=== PATIENT | female | born 1980 | race American Indian/Alaskan Native ===

== ENCOUNTER 2017-03-22 11:17 | Outpatient (CLI) | payer OTHER ==
--- NOTE | 2017-03-22 12:42 | XRay Report ---
BILATERAL HIPS WITH PELVIS, 3 VIEWS: History: Pain. Findings: Bone mineralization is within normal limits. There is no evidence for fracture, dislocation or pelvic diastasis. No advanced joint pathology is detected. The soft tissues are unremarkable. Impression: Unremarkable exam.
--- NOTE | 2017-03-22 12:44 | XRay Report ---
LEFT KNEE, 2 VIEWS History: Pain, compartment syndrome. Findings: No comparison. Chronic, remodeling fracture of the tibial plateau and distal femoral shaft are suspected, please correlate with history. There are mild posttraumatic degenerative changes at the left knee. There is lateral subluxation of the tibial plateau with respect to the distal femur. Small joint effusion. Impression: Chronic findings as described. No acute injury is appreciated.
== END 2017-03-22 11:18 | disposition home or self-care (01) ==
LOC: XRAY 11:17
PROVIDERS: ATTEND Internal Medicine
DX: M17.32 Unilateral post-traumatic osteoarthritis, left knee (principal); M25.551 Pain in right hip; M25.552 Pain in left hip; J45.909 Unspecified asthma, uncomplicated; F41.9 Anxiety disorder, unspecified; D64.9 Anemia, unspecified; F31.9 Bipolar disorder, unspecified; T79.A0XA Compartment syndrome, unspecified, initial encounter; X58.XXXA Exposure to other specified factors, initial encounter
CPT/HCPCS: 73521

== ENCOUNTER 2017-10-15 19:26 | Inpatient (IN) | payer OTHER ==
[~2017-10-15 19:26] MED LIST: PITOCin/NS 20 UNIT/1000ML DRIP 20 UNITS/1,000 ML BAG IV SCH
[2017-10-15] MEDS ORDERED: PITOCin/NS 20 UNIT/1000ML DRIP 20,000 MILLIUNITS/1,000 ML BAG IV ONE ×2 (19:30→21:00)
[2017-10-15] MEDS ORDERED: D10W 250 ML IV ONE (19:32)
[2017-10-15] MEDS ORDERED: TORADOL IV ONE (20:44)
[2017-10-15] MEDS ORDERED: DULCOLAX PR PRN (21:44)
[2017-10-15] MEDS ORDERED: ZOFRAN IV PRN (21:44)
[2017-10-15] MEDS ORDERED: PHENERGAN PR PRN (21:44)
[2017-10-15] MEDS ORDERED: LANSINOH TP PRN (21:44)
[2017-10-15] MEDS ORDERED: TYLENOL PO PRN (21:44)
[2017-10-15] MEDS ORDERED: BENADRYL PO PRN (21:44)
[2017-10-15] MEDS ORDERED: MILK OF MAGNESIA PO PRN (21:44)
[2017-10-15] MEDS ORDERED: PHENERGAN PO PRN (21:44)
--- NOTE | 2017-10-15 21:47 | History and Physical Report ---
History of Present Illness Date of examination: 10/15/17 Date of admission: 10/15/17 19:26 History of present illness: 37y/o # 38+1 weeks presents via EMS after having a home delivery of a liveborn female . EMS revived the infant and noted the to have apgars of 1/4/6. The patient had spontaneous delivery of the placenta. Patient had been receiving care @ [facility]. No records are available for review. The patient states her GBS status is negative. Past History Past Medical History: no pertinent history Past Surgical History: other (repair of left upper and lower extremity fracture) Social history: - Obstetrical History Expected Date of Delivery: 10/28/17 Actual Gestation: 38 Week(s) 2 Day(s) : 8 Para: 6 Hx # Term Pregnancies: 6 Number of Pregnancies: 0 Spontaneous Abortions: 1 Induced : 0 Number of Living Children: 6 Medications and Allergies Allergies Allergy/AdvReac Type Severity Reaction Status Date / Time No Known Allergies Allergy Unverified 03/22/17 11:17 Active Meds: Active Medications Acetaminophen (Tylenol) 650 mg PO Q4H PRN PRN Reason: Pain MILD(1-3)/Fever >100.5/BUENO Acetaminophen/Hydrocodone Bitart ([place] 5/325) 2 each PO Q6H PRN PRN Reason: Pain, Moderate (4-6) Bisacodyl (Dulcolax) 10 mg MI BID PRN PRN Reason: Constipation Diphenhydramine HCl (Benadryl) 25 mg PO Q6H PRN PRN Reason: Itching Ibuprofen (Motrin) 600 mg PO Q6H ALESSANDRO Magnesium Hydroxide (Milk Of Magnesia) 30 ml PO HS PRN PRN Reason: Constipation Multi-Ingredient Ointment (Lansinoh) 1 applic TP PRN PRN PRN Reason: Sore Nipples Ondansetron HCl (Zofran) 4 mg IV Q8H PRN PRN Reason: Nausea And Vomiting Promethazine HCl (Phenergan) 25 mg MI Q6H PRN PRN Reason: Nausea And Vomiting Promethazine HCl (Phenergan) 25 mg PO Q6H PRN PRN Reason: Nausea And Vomiting Sodium Chloride (Sodium Chloride Flush Syringe 10 Ml) 10 ml IV PRN NR Witch Lisa/Glycerin (Tucks Pad) 1 each TP PRN PRN PRN Reason: Hemorrhoid/cleansing/soothing Review of Systems All systems: negative - Vital Signs Vital signs: Vital Signs Pulse BP 83 117/58 10/15/17 19:53 10/15/17 19:53 Temp Pulse Resp BP Pulse Ox 74 113/59 10/15/17 21:40 10/15/17 21:40 - Physical Exam Breasts: Positive: deferred Cardiovascular: Regular rate Lungs: Positive: Clear to auscultation Abdomen: Positive: normal appearance Results All other labs normal. Assessment and Plan - Patient Problems (1) Precipitous delivery Current Visit: Yes Status: Acute Plan to address problem: precipitous delivery routine care
--- NOTE | 2017-10-15 21:48 | Procedure Note ---
OB Delivery Note - Delivery Date of Delivery: 10/15/17 Surgeon: AKIRA WIGGINS - Vaginal Delivery presentation: vertex Intrapartum events: precipitous labor- <3hr Route of delivery: Delivery placenta: spontaneous Delivery cord: 3 umbilical vessels Episiotomy: none Delivery laceration: 1st degree Anesthesia: none Delivery comments: The patient a delivery of liveborn female at home. The placenta delivered spontaneously. The patient and were brought in by EMS. The patient sustained a first degree midline laceration and a superficial right periurethral laceration left unrepaired. weight 2.31Kg - A at 1 minute: 1 at 5 minutes: 4 Gender: Female (apgars of 1,4,6. Weight 2.31kg)
[2017-10-15] MEDS ORDERED: SODIUM CHLORIDE FLUSH SYRINGE 10 ML IV NR (22:00)
[2017-10-15 22:33] LABS: Rubella IgG Antibody Immune (Immune)
[2017-10-15 22:36] LABS: Hepatitis C Virus Antibody Non-Reactive (NonReactive)
[2017-10-15] MEDS: MOTRIN PO SCH (23:37)
[2017-10-15] MEDS: TUCKS PAD TP PRN (23:37)
[2017-10-15] MEDS: NORCO 5/325 PO PRN (23:38)
[2017-10-16] MEDS: MOTRIN PO SCH ×3 (05:30→20:11)
[2017-10-16] MEDS: NORCO 5/325 PO PRN ×4 (05:30→20:10)
--- NOTE | 2017-10-16 07:51 | Progress Note ---
Assessment and Plan - Patient Problems (1) Precipitous delivery Current Visit: Yes Status: Acute Plan to address problem: routine care Subjective - Subjective Date of service: 10/16/17 Interval history: The patient notes discomfort in perineum with urination. The patient has small 1st degree midline laceration. Lochia is decreasing. The infant is currently in the NICU Patient reports: appetite normal, voiding normally [place]: in NICU Objective - Vital Signs Latest vital signs: Vital Signs Temp Pulse Resp BP BP 10/16/17 04:14 98.7 F 77 18 97/52 10/16/17 00:00 96.8 F L 20 10/15/17 23:37 98.5 F 74 18 112/59 10/15/17 22:24 71 101/54 10/15/17 22:09 69 108/58 10/15/17 21:54 74 111/58 10/15/17 21:40 74 113/59 10/15/17 21:25 77 126/77 10/15/17 21:10 80 119/61 10/15/17 20:55 68 129/67 10/15/17 20:40 82 129/67 10/15/17 20:25 89 137/75 10/15/17 20:18 162 H 137/100 10/15/17 19:53 83 117/58 10/15/17 19:32 98.6 F 20 Intake and Output 10/15/17 10/16/17 10/16/17 22:59 06:59 14:59 Output Total 500 Balance -500 Output: Urine 500 Void 500 Other: Total, Output Amount 500 Weight 122.47 kg - Exam Cardiovascular: Present: Regular rate Lungs: Present: Clear to auscultation Abdomen: Present: normal appearance Incision: Present: other (small perineal laceration)
[2017-10-16 10:40] LABS: Hematocrit 29.9 % (30.3-42.9); Hemoglobin 9.4 gm/dl (10.1-14.3)
[2017-10-16] MEDS: TUCKS PAD TP PRN (22:06)
[2017-10-16 22:41] LABS: Amphetamine Screen,Urine PRESUMPTIVE NEGATIVE; Benzodiazepines Screen,Urine PRESUMPTIVE NEGATIVE; Cannabinoid Screen,Urine PRESUMPTIVE NEGATIVE; Cocaine Screen,Urine PRESUMPTIVE NEGATIVE; Opiate Screen,Urine PRESUMPTIVE NEGATIVE
[2017-10-16 22:58] LABS: Methadone Screen,Urine PRESUMPTIVE POSITIVE
[2017-10-17 01:55] VITALS: BP 105/78
[2017-10-17] MEDS: MOTRIN PO SCH ×2 (06:03→12:15)
[2017-10-17] MEDS: NORCO 5/325 PO PRN ×2 (06:03→12:15)
--- NOTE | 2017-10-17 08:36 | Progress Note ---
Assessment and Plan A/P PPD#2 s/p baby in NICU +methadone d/c home social service involved Subjective - Subjective Date of service: 10/17/17 Principal diagnosis: Patient reports: appetite normal, voiding normally, pain well controlled, flatus , ambulating normally [place]: in NICU Objective - Vital Signs Latest vital signs: Vital Signs Temp Pulse Resp BP BP Pulse Ox 10/17/17 06:03 18 10/17/17 00:30 98.6 F 78 16 105/78 10/16/17 20:11 18 10/16/17 20:10 18 10/16/17 17:09 97.8 F 79 18 99/58 100 10/16/17 14:30 20 10/16/17 09:51 20 Intake and Output 10/16/17 10/17/17 10/17/17 23:59 07:59 15:59 Intake Total 300 Balance 300 Intake: Intake, Free Water 300 - Exam Breasts: Present: normal Cardiovascular: Present: Regular rate, Normal S1 Lungs: Present: Clear to auscultation, Normal air movement Abdomen: Present: normal appearance, soft, normal bowel sounds. Absent: distention, tenderness, guarding Vulva: both: normal Uterus: Present: normal, firm Extremities: Present: normal Deep Tendon Reflex Grade: Normal +2 - Labs Labs: Abnormal lab results 10/16/17 Range/Units 10:08 Hgb 9.4 L (10.1-14.3) gm/dl Hct 29.9 L (30.3-42.9) %
--- NOTE | 2017-10-17 08:52 | Discharge Summary ---
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 HYDROcodone/APAP 5-325 [[place] 5/325] 1 each PO Q4HR PRN #30 tablet PRN Reason: Pain Ibuprofen [Motrin] 800 mg PO Q8HR PRN #60 tablet PRN Reason: Pain - Provider Discharge Summary Activity: routine, no sex for 6 weeks, no strenuous exercise Diet: routine Instructions: routine Additional instructions: [] Smoking cessation referral if applicable(refer to patient education folder for contact #) [] Refer to [facility]'s [facility] Booklet Call your doctor immediately for: * Fever > 100.5 * Heavy vaginal bleeding ( >1 pad per hour) * Severe persistent headache * Shortness of breath * Reddened, hot, painful area to leg or breast * Drainage or odor from incision. * Keep incision clean and dry at all times and follow doctor's instructions regarding bathing/showering - Follow up plan Follow up: AKIRA WIGGINS MD [Primary Care Provider] - 11/07/17
== END 2017-10-17 17:30 | disposition home or self-care (01) | DRG 775 ==
LOC: LD 19:26 → OB 23:24
PROVIDERS: ADMIT Obstetrics & Gynecology; ATTEND Obstetrics & Gynecology
DX: O70.0 First degree perineal laceration during delivery (principal); Z37.0 Single live birth; O62.3 Precipitate labor; Z3A.38 38 weeks gestation of pregnancy
CPT/HCPCS: 36415; 80307; 85014; 85018; 85660; 86592; 86706; 86762; 86803; 86850; 86900; 86901; 87806; 99211; G0463; J1885; J2590

== ENCOUNTER 2021-07-20 19:33 | Emergency (ER) | payer OTHER ==
[2021-07-20 20:15] VITALS: BP 115/72
--- NOTE | 2021-07-20 21:58 | Emergency Department Report ---
HPI - General Chief Complaint: Vaginal Bleeding - HPI HPI: 40-year-old female at approximately 20 weeks gestation based on her LMP presents complaining of cute onset of bleeding from her rectum or vagina. She states that she has not yet had an appointment with her INSURANCE EXAMINER at [facility] to confirm her but that appointment is in 2 days. She has not had an ultrasound for this . She does have a history of labor in the past. She says her blood type is O+. She states that today she was on the toilet having a bowel movement when she noticed that the toilet was filled with what looked like blood and blood clots. When she wiped there was no more blood and so she was unable to discern whether the bleeding came from her vagina or rectum. Since this incident which was approximately 5 hours ago, she has had lower abdominal cramping which she says feels like contractions. She denies any other associated symptoms or complaints. She has not tried taking anything for her symptoms. There are no known aggravating or alleviating factors. ED Past Medical Hx - Past Medical History Hx Hypertension: No Hx Congestive Heart Failure: No Hx Diabetes: No Hx Deep Vein Thrombosis: No Hx Renal Disease: No Hx Sickle Cell Disease: No Hx Seizures: No Hx Asthma: No Hx COPD: No Hx HIV: No - Social History Smoking Status: Never Smoker - Medications Home Medications: Home Medications Medication Instructions Recorded Confirmed Last Taken Type HYDROcodone/APAP 5-325 [[place] 1 each PO Q4HR PRN #30 tablet 10/16/17 Unknown Rx 5/325] Ibuprofen [Motrin] 800 mg PO Q8HR PRN #60 tablet 10/16/17 Unknown Rx Ferrous Sulfate 325 mg PO BID #60 tablet. 10/17/17 Unknown Rx ED Review of Systems ROS: Stated complaint: VAG BLEEDING-PREG Other details as noted in HPI Constitutional: denies: chills, fever Eyes: denies: eye pain, vision change ENT: denies: throat pain, congestion Respiratory: denies: cough, shortness of breath Cardiovascular: denies: chest pain, palpitations Gastrointestinal: abdominal pain. denies: nausea, vomiting Genitourinary: other (vaginal vs. rectal bleeding). denies: dysuria, frequency Musculoskeletal: denies: back pain, arthralgia Skin: denies: rash, lesions Neurological: denies: headache, weakness Psychiatric: denies: anxiety Hematological/Lymphatic: denies: easy bleeding Physical Exam - Physical Exam Vital Signs: Vital Signs 07/20/21 20:12 Temperature 98.0 F Pulse Rate 79 Respiratory 16 Rate Blood Pressure 115/72 [Left] O2 Sat by Pulse 98 Oximetry Physical Exam: GENERAL: Well developed and well nourished. No acute distress HEAD: Normocephalic. No obvious signs of trauma. ENT: Moist mucous membranes. EYES: Extraocular movements are intact. Pupils are equal round and reactive to light bilaterally NECK: Supple. Full ROM is intact. Trachea is midline. LUNGS: Nonlabored breathing. Equal chest rise bilaterally. Clear to auscultation bilaterally. CARDIOVASCULAR: Regular rate and rhythm. No murmurs or rubs. VASCULAR: Cap refill < 2 seconds ABDOMEN: Gravid abdomen which is soft. There is mild bilateral and mid suprapubic tenderness without significant guarding or rebound tenderness. RECTAL/: Deferred SKIN: Skin is warm and dry NEURO: Patient is awake, alert, and oriented. auger supervisor II-XII grossly intact. No focal deficits. Normal motor and sensory exam throughout. Normal speech. MUSCULOSKELETAL: No obvious deformities. No significant tenderness. Normal ROM throughout. BACK/SPINE: No costovertebral angle tenderness. ED Course Vital Signs 07/20/21 20:12 Temperature 98.0 F Pulse Rate 79 Respiratory 16 Rate Blood Pressure 115/72 [Left] O2 Sat by Pulse 98 Oximetry ED Medical Decision Making - Lab Data Result diagrams: 07/20/21 21:50 07/20/21 21:50 - Medical Decision Making 40-year-old female at approximately 20 weeks gestation based on her LMP presents complaining of acute onset of bleeding from her rectum or vagina. She states that she has not yet had an appointment with her INSURANCE EXAMINER at [facility] to confirm her but that appointment is in 2 days. Also reports cramping which she says feels like prior contractions. She is afebrile and with grossly normal vital signs. Physical exam reveals a gravid abdomen with bilateral and mid suprapubic tenderness without any other abnormalities on physical exam. Before rectal exam could be performed the patient was brought to ultrasound. When she returns from ultrasound we will perform rectal/vaginal exam with the nurse present as a medical office specialist. Full set of labs have been ordered. The patient is O+. Labs reveal no significant leukocytosis and hemoglobin of 9.4 which is at her baseline. There are no significant electrolyte abnormalities and kidney function is within normal limits. hCG level is 29,700. ultrasound reveals 20.4-week intrauterine with heart rate of 142. When I returned to the bedside to perform the portions of the exam which were deferred, I was informed by the nurse that the patient has eloped. Critical care attestation.: If time is entered above; I have spent that time in minutes in the direct care of this critically ill patient, excluding procedure time. ED Disposition Clinical Impression: Vaginal bleeding before 22 weeks gestation, Intrauterine Disposition: 07 LEFT AWOL/ELOPED Is pt being admited?: No Referrals: PRIMARY CARE, [Primary Care Provider] - 3-5 Days
[2021-07-20 22:06] LABS: Basophils % (Auto) 0.4 % (0.0-1.8); Eosinophils # (Auto) 0.1 K/mm3 (0.0-0.4); Eosinophils % (Auto) 1.3 % (0.0-4.3); Hematocrit 29.9 % (30.3-42.9); Hemoglobin 9.4 gm/dl (10.1-14.3); Lymphocytes % (Auto) 28.3 % (13.4-35.0); Mean Corpuscular HGB Conc 32 % (30-34); Mean Corpuscular Volume 78 fl (79-97); Monocytes # (Auto) 0.7 K/mm3 (0.0-0.8); Monocytes % (Auto) 6.4 % (0.0-7.3); Platelet Count 346 K/mm3 (140-440); Red Blood Count 3.83 M/mm3 (3.65-5.03); Red Cell Distribution Width 15.1 % (13.2-15.2)
[2021-07-20 22:25] LABS: INR 0.97 (0.87-1.13)
[2021-07-20 22:26] LABS: Partial Thromboplastin Time 30.2 Sec. (24.2-36.6)
[2021-07-20 22:27] LABS: Alanine Aminotransferase 8 units/L (7-56); Albumin 3.8 g/dL (3.9-5); Blood Urea Nitrogen 12 mg/dL (7-17); Calcium 9.3 mg/dL (8.4-10.2); Hemolysis Index 0
[2021-07-20 22:28] LABS: BUN/Creatinine Ratio 20; Bilirubin,Direct < 0.2 mg/dL (0-0.2)
--- NOTE | 2021-07-20 23:31 | Ultrasound Report ---
ULTRASOUND OBSTETRIC COMPLETE INDICATION / CLINICAL INFORMATION: Vaginal bleeding. Clinical Gestational Age (GA) in weeks.days: 20.0 TECHNIQUE: Transabdominal. COMPARISON: None available. FINDINGS: NUMBER: Single PRESENTATION: cephalic PLACENTA: anterior, grade 0 and low lying. MATERNAL ADNEXA: No significant abnormality. AMNIOTIC FLUID VOLUME: normal AMNIOTIC FLUID INDEX (BG) in cm (if measured): ANATOMY: organs (including the bladder, stomach, kidneys, heart, umbilical cord, diaphragm, cord inserti on, spine and intracranial structures) are visualized and show no significant abnormality with the fo llowing exception(s): Spine and intracranial structures incompletely evaluated. MEASUREMENTS: - Biparietal Diameter = 4.8 cm = 20.3 weeks.days - Head Circumference = 17.6 cm = 20.1 weeks.days - Abdominal Circumference = 15.7 cm = 20.6 weeks.days - Femur Length = 3.4 cm = 20.5 weeks.days - Estimated Weight (in grams, if calculated): 370 +/- 55 g - Heart Rate (beats per minute): 142 ADDITIONAL FINDINGS: The uterine cervix measures 3.5 cm in length and the internal os is closed. PERCENTILE ESTIMATED WEIGHT (if calculated): 82 AVERAGE ULTRASOUND AGE (AUA) in weeks.days = 20.4 IMPRESSION: 1. Single intrauterine with AUA of 20.4 weeks.days 2. Low lying anterior placenta without previa. Signer Name: Geronimo Mcghee MD Signed: 07/20/2021 11:27 PM Workstation Name: [id number]
[2021-07-20 23:47] LABS: Bilirubin,Urine NEG (Negative); Blood,Urine NEG (Negative); Color,Urine Straw (Yellow); Mucus,Urine FEW /HPF; Protein,Urine <15 mg/dL mg/dL (Negative); Urobilinogen,Urine < 2.0 mg/dL (<2.0)
== END 2021-07-20 22:50 | disposition left against medical advice (07) ==
LOC: ED 19:33
DX: O46.92 Antepartum hemorrhage, unspecified, second trimester (principal); O00.01 Abdominal pregnancy with intrauterine pregnancy; Z3A.20 20 weeks gestation of pregnancy
CPT/HCPCS: 36415; 76805; 80048; 80076; 81001; 84702; 85025; 85610; 85730; 86850; 86900; 86901; 87086; 99283